=== PATIENT | female | born 1990 | race Caucasian/White ===

== ENCOUNTER 2017-03-31 11:22 | Emergency (ER) | payer OTHER ==
[2017-03-31 11:59] VITALS: BP 116/67; PULSE 77; RESP 18; TEMP 98.4; O2SAT 98
[2017-03-31] MEDS ORDERED: Sodium Chloride 0.9% 1,000 ML IV SCH (13:00)
--- NOTE | 2017-03-31 13:31 | ED PDOC ---
HPI: General Adult History Per: Patient <Bud Pandya - Last Filed: 03/31/17 15:01> <Maylin Feliz - Last Filed: 03/31/17 15:05> Time Seen by Provider: 03/31/17 12:07 Chief Complaint (Nursing): Headache Additional Complaint(s): Pt. states since the weekend she's had a gradual onset holocephalic headache associated with diffuse bodyaches and sore throat. Pt. states she's been having headaches for the past 3 months. Pt. had MRI 2 weeks ago and was diagnosed as having Chiari Type 1 malformation. Pt. was already evaluated by a neurosurgeon and was told likely she will not surgery but is still pending an MRI of her spine. Denies fever, trauma, rash, cough, congestion, abdominal pain. Of note, pt. states her father whom she is in physical contact with was diagnosed with strep throat. (Bud Pandya) Past Medical History Reviewed: Historical Data, Nursing Documentation, Vital Signs - Surgical History Surgical History: No Surg Hx - Family History Family History: States: Unknown Family Hx - Immunization History Hx Tetanus Toxoid Vaccination: No Hx Influenza Vaccination: No Hx Pneumococcal Vaccination: No <Bud Pandya - Last Filed: 03/31/17 15:01> <Maylin Feliz - Last Filed: 03/31/17 15:05> Vital Signs: Last Vital Signs Temp 98.4 F 03/31/17 11:58 Pulse 77 03/31/17 11:58 Resp 18 03/31/17 11:58 BP 116/67 03/31/17 11:58 Pulse Ox 98 03/31/17 15:01 - Home Medications Home Medications: Ambulatory Orders Medication Instructions Recorded traMADol [Ultram] 50 mg PO Q8 #10 tab 08/23/16 - Allergies Allergies/Adverse Reactions: Allergies Allergy/AdvReac Type Severity Reaction Status Date / Time No Known Allergies Allergy Verified 03/31/17 12:03 Review of Systems ROS Statement: Except As Marked, All Systems Reviewed And Found Negative Musculoskeletal: Positive for: Neck Pain Neurological: Positive for: Headache <Bud Pandya - Last Filed: 03/31/17 15:01> Physical Exam - Reviewed Nursing Documentation Reviewed: Yes Vital Signs Reviewed: Yes - Physical Exam Appears: Positive for: Well, Non-toxic, No Acute Distress Head Exam: Positive for: ATRAUMATIC, NORMAL INSPECTION, NORMOCEPHALIC Skin: Positive for: Normal Color, Warm. Negative for: Rash Eye Exam: Positive for: EOMI, Normal appearance, PERRL ENT: Positive for: TM Is/Are (non-erythematous, non-bulging b/l), Pharyngeal Erythema. Negative for: Tonsillar Exudate, Tonsillar Swelling Neck: Positive for: Normal, Painless ROM Cardiovascular/Chest: Positive for: Regular Rate, Rhythm Respiratory: Positive for: CNT, Normal Breath Sounds Gastrointestinal/Abdominal: Positive for: Normal Exam, Bowel Sounds, Soft. Negative for: Tenderness Back: Positive for: Normal Inspection Extremity: Positive for: Normal ROM Neurologic/Psych: Positive for: Alert, Oriented. Negative for: Aphasia, Facial Droop <uBd Pandya - Last Filed: 03/31/17 15:01> - Laboratory Results Result Diagrams: 03/31/17 13:15 03/31/17 13:15 - ECG O2 Sat by Pulse Oximetry: 98 <Bud Pandya - Last Filed: 03/31/17 15:01> - Laboratory Results Result Diagrams: 03/31/17 13:15 03/31/17 13:15 <Maylin Feliz - Last Filed: 03/31/17 15:05> - Progress ED Course And Treament: Pt. evaluated by Dr. Feliz. Labs ordered. Toradol 30mg IV given. 1415 Pt. reports feeling much better. Repeat neuro exam is non-focal. 1457 Case d/w Dr. Feliz and agrees with disposition and states pt. is to f/u with her neurologist. On 2nd re-evaluation, pt. still without any headache. Informed of results and instructed to f/u with her neurologist for further evaluation. Also told to return to ED immediately if headache returns. (Bud Pandya) Medical Decision Making <Bud Pandya - Last Filed: 03/31/17 15:01> <Maylin Feliz - Last Filed: 03/31/17 15:05> Medical Decision Making: Patient seen by the PA and then seen by me. Patient reports that she has had unchanged headaches x months and is following up with a neurosurgeon and neurology. She reports that she has had extensive workup and imaging, including MRI. She reports that over the last couple of days she has felt generalized fatigue and lethargy. She has no other complaints or focus of symptoms- no ear pain, sore throat, chest pain, shortness of breath, abdominal pain, dysuria, or vision changes. She reports that this current headache is her usual baseline headache. She is neurologically intact and ambulating around the ED without issue. She is well appearing and afebrile. Labs grossly normal. She felt better after IVF and was instructed to follow-up with her neurologist and neurosurgeon. (Maylin Feliz) Disposition - Patient ED Disposition Is Patient to be Admitted: No - Disposition Disposition: Routine/Home Disposition Time: 14:59 <Bud Pandya - Last Filed: 03/31/17 15:01> <Maylin Feliz - Last Filed: 03/31/17 15:05> - Clinical Impression Clinical Impression: Acute headache - Disposition Condition: IMPROVED Additional Instructions: FOLLOW UP WITH YOUR NEUROLOGIST WITHOUT FAIL. Instructions: Acute Headache (ED)
[2017-03-31 13:40] LABS: ALB/GLOB RATIO 1.7 (1.0-2.1); ALBUMIN 4.3 g/dL (3.5-5.0); ALT/SGPT 32 U/L (9-52); AST/SGOT 25 U/L (14-36); BLOOD UREA NITROGEN 11 mg/dl (7-17); CALCIUM 9.1 mg/dL (8.4-10.2); GFR AFRICAN-AMERICAN > 60; GFR NON-AFRICAN AMERICAN > 60; LIPASE 43 U/L (23-300)
[2017-03-31 13:58] LABS: BASO % 0.8 % (0.0-2.0); EOS # 0.1 K/uL (0.0-0.7); EOS % 1.1 % (0.0-4.0); HEMOGLOBIN 12.1 g/dL (12.0-16.0); LYMPH # 1.1 K/uL (1.0-4.3); MEAN CELL VOLUME 83.7 fl (81.0-99.0); MEAN CORPUSCULAR HGB CONC 32.2 g/dL (33.0-37.0); MEAN PLATELET VOLUME 8.3 fl (7.2-11.7); MONO # 0.3 K/uL (0.0-0.8); NEUT # 3.4 K/uL (1.8-7.0); NEUT % 68.1 % (50.0-75.0); NRBC % 0.3 % (0.0-0.0); RBC 4.51 Mil/uL (3.80-5.20); RED CELL DISTRIBUTION WIDTH 13.2 % (11.5-14.5)
[2017-03-31 14:05] LABS: PARTIAL THROMBOPLASTIN TIME 30.2 Seconds (25.6-37.1); PROTHROMBIN TIME 11.5 Seconds (9.8-13.1)
== END 2017-03-31 15:45 | disposition home or self-care (01) ==
LOC: H.ER 11:22
DX: R51 Headache (principal); A69.20 Lyme disease, unspecified